=== PATIENT | male | born 1950 | race Caucasian/White ===

== ENCOUNTER 2016-10-12 19:07 | Emergency (ER) | payer OTHER ==
[~2016-10-12] VITALS: Ht 165.1 cm; Wt 86.7 kg
[~2016-10-12 19:07] MED LIST: CARV12.52 PO; DIGO125T PO; FURO20TA3 PO; HYDR-3138 PO; INSU100I28 SQ-INSULIN
[2016-10-12] MEDS ORDERED: SILVER NITRATE STICK TP ONE ×2 (20:00→20:04)
[2016-10-12] MEDS ORDERED: COCAINE TOPICAL SOLN 4%, 4ML TP ONE (20:00)
[2016-10-12] MEDS ORDERED: COCAINE TOPICAL SOLN 4%, 4ML ONE (20:04)
[2016-10-12] MEDS ORDERED: OXYMETAZOLINE NASAL SPRAY 0.05%, 15ML ONE (20:04)
[2016-10-12] MEDS ORDERED: BACITRACIN ZINC OINT 500U/GM, 0.9 GM ONE (20:13)
[2016-10-12 22:07] VITALS: BP 124/85
== END 2016-10-12 22:09 | disposition home or self-care (01) ==
LOC: ED 21:43
DX: R04.0 Epistaxis (principal); E11.9 Type 2 diabetes mellitus without complications; I10 Essential (primary) hypertension; E78.00 Pure hypercholesterolemia, unspecified
CPT/HCPCS: 30901; 36415; 85025; 85610